=== PATIENT | female | born 1995 | race Hispanic/Latino ===

== ENCOUNTER 2020-12-05 06:10 | Emergency (ER) | payer OTHER ==
[~2020-12-05] VITALS: Ht 162.6 cm; Wt 108.9 kg
[2020-12-05] MEDS ORDERED: HYDROCODONE/APAP 5MG-325MG TAB PO ONE (08:15)
[2020-12-05] MEDS ORDERED: KETOROLAC TROMETHAMINE 60 MG/2 ML VIAL IM ONE (08:15)
[2020-12-05 09:08] VITALS: BP 125/68
== END 2020-12-05 09:11 | disposition home or self-care (01) ==
LOC: ER 06:16
DX: S00.83XA Contusion of other part of head, initial encounter (principal); Y04.0XXA Assault by unarmed brawl or fight, initial encounter; Y92.89 Other specified places as the place of occurrence of the external cause
CPT/HCPCS: 70450; 72125; 99283; J1885

== ENCOUNTER → 2020-12-15 | Day surgery (SDC) | payer OTHER ==
[~2020-12-15] MED LIST: ACETAMINOPHEN/CODEINE 300MG - 30MG TAB ONE; BUPIVACAINE HCL 0.5% INJ 30 ML VIAL INJ ONE; DEXAMETHASONE SOD PHOS INJ 4 MG/ML SDV ONE; FENTANYL CITRATE/PF 100MCG/2 ML INJ ONE; HYDROMORPHONE 1MG/1ML INJ ONE; KEPPRA500 MG PO; KETOROLAC TROMETHAMINE 30 MG/ML VIAL ONE; LIDOCAINE HCL 2% LOCAL INJ 5 ML SDV VIAL INJ ONE; MEPERIDINE HCL INJ 25 MG/ML VIAL ONE; MIDAZOLAM HCL 2 MG/2 ML VIAL ONE; MOTRIN200 MG PO; ONDANSETRON HCL INJ 2MG/ML 2ML 2 MG/ML VIAL ONE; POVIDONE IODINE 0.05% 0.05 % ML PO ONE; PROPOFOL IV EMULSION 10 MG/ML 20 ML VIAL ONE; SEVOFLURANE INHAL SOLN 250 ML PEN BTL ONE; SODIUM CHLORIDE 0.9% 50ML 100 ML ONE
[2020-12-15 12:00] VITALS: BP 142/98
== END | disposition home or self-care (01) ==
LOC: OR 06:52
PROVIDERS: ATTEND Specialist
DX: S82.841A Displaced bimalleolar fracture of right lower leg, initial encounter for closed fracture (principal); S93.421A Sprain of deltoid ligament of right ankle, initial encounter; J45.909 Unspecified asthma, uncomplicated; R56.9 Unspecified convulsions; K21.9 Gastro-esophageal reflux disease without esophagitis; E66.01 Morbid (severe) obesity due to excess calories; Y04.8XXA Assault by other bodily force, initial encounter; X50.1XXA Overexertion from prolonged static or awkward postures, initial encounter; Z01.812 Encounter for preprocedural laboratory examination; Z20.822 Contact with and (suspected) exposure to COVID-19
CPT/HCPCS: 27792; 76000; 81025; C1713 ×5; J0690; J1100; J1170; J1885; J2001; J2175; J2250; J2405; J2704; J3010; U0002